=== PATIENT | female | born 1985 | race Caucasian/White ===

== ENCOUNTER 2017-11-15 08:10 | Emergency (ER) | payer MEDICAID ==
[~2017-11-15] VITALS: Ht 154.9 cm; Wt 68.2 kg
[~2017-11-15 08:10] MED LIST: CARB1TAB43 PO
[2017-11-15] MEDS ORDERED: MORPHINE SULFATE 4 MG/ML, 1ML ONE ×2 (08:54→09:45)
[2017-11-15] MEDS ORDERED: ONDANSETRON 2MG/ML, 2ML ONE ×2 (08:54→09:46)
[2017-11-15] MEDS: MORPHINE SULFATE 4 MG/ML, 1ML IVPush PRN ×2 (09:00→09:50)
[2017-11-15] MEDS ORDERED: ONDANSETRON 2MG/ML, 2ML IVPush ONE (09:00)
[2017-11-15] MEDS ORDERED: SODIUM CHLORIDE FLUSH 10ML SYR IVF ONE (09:00)
[2017-11-15] MEDS ORDERED: SODIUM CHLORIDE 0.9% 1,000ML IVBOLUS ONE (09:00)
[2017-11-15 09:13] LABS: BASOPHILS # (AUTO) 0.05 x10^3/uL (0-0.1); BASOPHILS % (AUTO) 1 % (0-1); EOSINOPHILS # (AUTO) 0.04 x10^3/uL (0-0.4); EOSINOPHILS % (AUTO) 1 % (1-7); LYMPHOCYTES # (AUTO) 1.17 x10^3/uL (1-3.4); LYMPHOCYTES % (AUTO) 16 % (22-44); MD NO; MEAN CORPUSCULAR HEMOGLOBIN 30.8 pg (27.0-34.8); MEAN CORPUSCULAR HGB CONC 33.5 g/dL (32.4-35.8); MEAN CORPUSCULAR VOLUME 91.9 fL (80-100); MEAN PLATELET VOLUME 8.2 fL (7.4-10.4); MONOCYTES # (AUTO) 0.49 x10^3/uL (0.2-0.8); MONOCYTES % (AUTO) 7 % (2-9); NEUTROPHILS # (AUTO) 5.58 x10^3/uL (1.8-6.8); NEUTROPHILS % (AUTO) 76 % (42-75); PLATELET COUNT 448 x10^3/uL (130-400); RED BLOOD COUNT 3.95 x10^6/uL (3.82-5.3); RED CELL DISTRIBUTION WIDTH 14.1 % (9.6-15.2)
[2017-11-15 09:24] LABS: ALBUMIN 4.2 g/dL (3.4-5.0); ANION GAP 10 mmol/L (5-15); CALCIUM 8.6 mg/dL (8.5-10.1); CHLORIDE 109 mmol/L (98-107)
[2017-11-15 09:29] LABS: ALANINE AMINOTRANSFERASE 22 U/L (12-78); ALKALINE PHOSPHATASE 80 U/L (45-117); BILIRUBIN,TOTAL 0.8 mg/dL (0.2-1.0); CREATININE 0.71 mg/dL (0.55-1.02); TOTAL PROTEIN 8.2 g/dL (6.4-8.2)
[2017-11-15 10:09] LABS: MICROSCOPIC NOT IND
[2017-11-15 10:16] LABS: CULTURE INDICATED? NO
[2017-11-15 11:07] VITALS: BP 121/66
== END 2017-11-15 11:10 | disposition home or self-care (01) ==
LOC: ED 08:25
DX: R10.32 Left lower quadrant pain (principal); G89.29 Other chronic pain
CPT/HCPCS: 36415; 76830; 80053; 81003; 84703; 85025; 96361; 96374; 96375; 96376; 99285; J2405; J7030

== ENCOUNTER 2018-03-20 09:24 | Emergency (ER) | payer MEDICAID ==
[~2018-03-20] VITALS: Ht 154.9 cm; Wt 72.7 kg
[2018-03-20 09:28] VITALS: BP 111/84
[2018-03-20] MEDS ORDERED: LORazepam 1MG TABLET ONE (10:40)
[2018-03-20] MEDS ORDERED: KETOROLAC 30 MG/1 ML ONE (10:41)
[2018-03-20] MEDS ORDERED: LORazepam 1MG TABLET PO ONE (11:30)
[2018-03-20] MEDS ORDERED: KETOROLAC 30 MG/1 ML IM ONE (11:30)
== END 2018-03-20 12:11 | disposition home or self-care (01) ==
LOC: ED 10:51
DX: S16.1XXA Strain of muscle, fascia and tendon at neck level, initial encounter (principal); N80.9 Endometriosis, unspecified; W18.2XXA Fall in (into) shower or empty bathtub, initial encounter; Y93.89 Activity, other specified; Y92.89 Other specified places as the place of occurrence of the external cause; Y99.8 Other external cause status
CPT/HCPCS: 70450; 72072; 72125; 96372; 99284; J1885

== ENCOUNTER 2019-08-02 11:42 | Emergency (ER) | payer MEDICAID ==
[~2019-08-02] VITALS: Ht 165.1 cm; Wt 68.0 kg
--- NOTE | 2019-08-02 11:53 | NUR ---
PATIENT BROUGHT IN BY [facility] WITH CHIEF COMPLAINT OF DIZZYNESS, SOB AND FEELING NUMBNESS IN FACE STARTING AT WORK THIS MORNING. PATIENT STATES SHE ATE A NORMAL BREAKFAST BUT A FEW HOURS LATER BEGAN FEELING POOR. THE PATIENT IS ALERT, ORIENTED, WARM, AND DRY. STEADY AMBULATION TO BATHROOM.
[2019-08-02] MEDS ORDERED: NORE1TAB11 PO (12:03)
[2019-08-02 12:17] LABS: BASOPHILS # (AUTO) 0.02 x10^3/uL (0-0.1); BASOPHILS % (AUTO) 0 % (0-1); EOSINOPHILS # (AUTO) 0.04 x10^3/uL (0-0.4); EOSINOPHILS % (AUTO) 1 % (1-7); LYMPHOCYTES # (AUTO) 1.46 x10^3/uL (1-3.4); LYMPHOCYTES % (AUTO) 25 % (22-44); MD NO; MEAN CORPUSCULAR HEMOGLOBIN 32.4 pg (27.0-34.8); MEAN CORPUSCULAR HGB CONC 32.9 g/dL (32.4-35.8); MEAN CORPUSCULAR VOLUME 98.3 fL (80-100); MONOCYTES # (AUTO) 0.35 x10^3/uL (0.2-0.8); MONOCYTES % (AUTO) 6 % (2-9); NEUTROPHILS # (AUTO) 3.99 x10^3/uL (1.8-6.8); NEUTROPHILS % (AUTO) 68 % (42-75); PLATELET COUNT 401 x10^3/uL (130-400); RED BLOOD COUNT 3.81 x10^6/uL (3.82-5.3); RED CELL DISTRIBUTION WIDTH 13.5 % (9.6-15.2)
[2019-08-02 12:29] LABS: ANION GAP 7 mmol/L (5-15); CHLORIDE 112 mmol/L (98-107); CREATININE 0.75 mg/dL (0.55-1.02)
[2019-08-02 12:32] LABS: HCG UR SG 1.004 (1.003-1.030)
--- NOTE | 2019-08-02 12:51 | NUR ---
PATIENT STATED SLIGHT SUDDEN CHEST PRESSURE, NO SOB, NO N/V. ERMD NOTIFIED. EKG NEGATIVE.
[2019-08-02 12:55] LABS: AMPHETAMINE SCREEN, URINE Negative (Negative); BARBITURATE SCREEN, URINE Negative (Negative); BENZODIAZEPINE SCREEN, URINE Negative (Negative); CANNABINOID SCREEN, URINE Positive (Negative); COCAINE SCREEN, URINE Negative (Negative); METHADONE SCREEN, URINE Negative (Negative); OPIATE SCREEN, URINE Negative (Negative)
[2019-08-02] MEDS ORDERED: ONDANSETRON ODT 4 MG ONE (12:58)
[2019-08-02] MEDS ORDERED: ONDANSETRON ODT 4 MG PO ONE (13:00)
--- NOTE | 2019-08-02 13:00 | NUR ---
ERMD AT BEDSIDE FOR UPDATE AND DISCUSS POC
[2019-08-02 13:16] VITALS: BP 125/78
--- NOTE | 2019-08-02 13:16 | NUR ---
DISCHARGE INSTRUCTIONS REVIEWED.
== END 2019-08-02 13:18 | disposition home or self-care (01) ==
LOC: ED 12:11
DX: R55 Syncope and collapse (principal); R42 Dizziness and giddiness
CPT/HCPCS: 36415; 80048; 80307; 81025; 83735; 85025; 93005; 99284; Q0162

== ENCOUNTER 2021-05-26 12:45 | Emergency (ER) | payer SELFPAY ==
[~2021-05-26] VITALS: Ht 154.9 cm; Wt 85.0 kg
[~2021-05-26 12:45] MED LIST changes: +NORE1TAB11 PO
[2021-05-26 12:50] VITALS: BP 126/82
== END 2021-05-26 13:42 | disposition home or self-care (01) ==
LOC: ED 13:36
DX: K02.9 Dental caries, unspecified (principal)
CPT/HCPCS: 99283

== ENCOUNTER 2021-06-20 16:19 | Emergency (ER) | payer OTHER ==
[~2021-06-20] VITALS: Ht 154.9 cm; Wt 82.0 kg
--- NOTE | 2021-06-20 16:27 | NUR ---
PT RECIEVED MODERNA VACCINE, STATES SHE HAS FACIAL NUMBNESS, STATES SHE COULDNT WALK. VSS BY EMS, NO HISTORY OR MEDS.
[2021-06-20 16:38] VITALS: BP 139/104
[2021-06-20 17:45] LABS: ALBUMIN 3.8 g/dL (3.4-5.0); ANION GAP 9 mmol/L (5-15); BASOPHILS % (AUTO) 1 % (0-1); CALCIUM 9.2 mg/dL (8.5-10.1); CHLORIDE 109 mmol/L (98-107); EOSINOPHILS % (AUTO) 0 % (1-7); LYMPHOCYTES % (AUTO) 19 % (22-44); MEAN CORPUSCULAR HGB CONC 34.5 g/dL (32.4-35.8); MONOCYTES % (AUTO) 7 % (2-9); NEUTROPHILS % (AUTO) 73 % (42-75); PLATELET COUNT 492 x10^3/uL (130-400); RED BLOOD COUNT 3.83 x10^6/uL (3.82-5.3); RED CELL DISTRIBUTION WIDTH 14.1 % (9.6-15.2)
[2021-06-20 17:52] LABS: CREATININE 0.76 mg/dL (0.55-1.02)
--- NOTE | 2021-06-20 18:28 | NUR ---
PT WHEELED BACK FROM TRIAGE. CHANGING INTO GOWN.
--- NOTE | 2021-06-20 19:05 | NUR ---
DR. SULLIVAN TO BEDSIDE FOR EVALUATION. FIRST CONTACT WITH PT. PT ATTACHED TO MONITORS. POSTIONED TO COMFORT IN BED. VSS. RIVERO.
--- NOTE | 2021-06-20 19:44 | NUR ---
Patient given discharge instructions and they have confirmed that they understand the instructions. Patient ambulatory with steady gait. NAD, all questions answered appropriately, denies additional needs at this time. No personal belongings left in room after discharge.
== END 2021-06-20 19:45 | disposition home or self-care (01) ==
LOC: ED 19:39
DX: R00.2 Palpitations (principal)
CPT/HCPCS: 36415; 71045; 80048; 82040; 84703; 85025; 93005; 99285